=== PATIENT | female | born 2000 ===

== ENCOUNTER 2021-04-16 22:35 | Emergency (ER) ==
[~2021-04-16] VITALS: Ht 165.1 cm; Wt 68.1 kg
[2021-04-16] MEDS ORDERED: JUNE1TAB PO (22:42)
== END 2021-04-17 02:19 | disposition left against medical advice (07) ==
LOC: M ED 22:35 → EDBD 22:35 → M ED 04-17 02:19
DX: Z53.29 Procedure and treatment not carried out because of patient's decision for other reasons (principal)